=== PATIENT | female | born 2005 | race Caucasian/White ===

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

== ENCOUNTER 2025-03-20 15:05 | Outpatient (CLI) | payer OTHER, SELFPAY | END 2025-03-20 15:06 | disposition home or self-care (01) | PROVIDERS: Visit Provider Family Medicine | DX: N91.1 Secondary amenorrhea (principal) | CPT/HCPCS: 80053; 83001; 84146; 84439; 84443; 84703 ==